=== PATIENT | female | born 2005 | race Caucasian/White ===

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

== ENCOUNTER → 2023-04-15 12:19 | Outpatient (CLI) | payer OTHER, MEDICAID, SELFPAY ==
--- NOTE | 2023-04-15 12:20 | DI.US.S_ITS ---
PROCEDURE: US PELVIC COMPLETE INDICATIONS: CRAMPING TECHNIQUE: Real-time scanning was performed of the pelvic organs, with image documentation. Additional endovaginal scanning was necessary due to incomplete visualization of the adnexal and endometrial structures by transabdominal scanning. COMPARISON: [facility], US, US PELVIC COMPLETE, 01/10/2022, 16:00. FINDINGS: Uterus: Uterus is retroverted and normal in size at 6.6 x 4.4 x 5.4 cm. The myometrium is homogeneous. The endometrium measures 10.7 mm combined thickness. No uterine fibroids. Ovaries: The right ovary measures 2.1 x 3.0 x 1.5 cm, with a calculated ovarian volume of 5.1 cc. The left ovary measures 3.4 x 1.9 x 2.7 cm, with a calculated ovarian volume of 9.4 cc. Left ovarian complex cyst measuring 1.8 x 0.9 x 1.1 cm with peripheral vascularity. Less than 12 follicles can be seen in each ovary. No adnexal masses are seen. Other: No pathologic free abdominal or pelvic fluid. IMPRESSION: Complex cyst within the left ovary with peripheral vascularity measuring 1.8 cm. Consider follow-up ultrasound in 6-12 weeks to assess stability or resolution. We strive to produce accurate, complete, and clear reports of imaging services. To assist us in improving patient care, this report was composed using standard report templates and voice recognition software. Therefore, it may contain abnormal punctuation, insertions and/or omissions. Occasional wrong-word or sound-alike substitutions may occur. Though we review the report and make efforts to correct it, we do recommend that the report be read carefully in proper context to recognize any text inaccuracies. Dictated by: Don Asher M.D. on 04/15/2023 at 14:28 Approved by: Don Asher M.D. on 04/15/2023 at 14:32
== END ==
PROVIDERS: Family Provider Family Medicine; PCP Family Medicine; Referring Provider Family Medicine; Visit Provider Family Medicine
DX: N93.9 Abnormal uterine and vaginal bleeding, unspecified (principal); N83.292 Other ovarian cyst, left side; R10.2 Pelvic and perineal pain; Z11.3 Encounter for screening for infections with a predominantly sexual mode of transmission; Z87.42 Personal history of other diseases of the female genital tract
CPT/HCPCS: 76830; 76856; 93975

== ENCOUNTER 2023-06-04 07:57 | Emergency (ER) | payer OTHER, MEDICAID, SELFPAY ==
[2023-06-04 08:16] VITALS: BP 133/73; PULSE 86; RESP 16; TEMP 36.9; O2SAT 99; BMI 21.9
--- NOTE | 2023-06-04 08:25 | ED.ANXIETY ---
HPI - Anxiety General Chief Complaint: Anxiety Stated Complaint: anxiety attacks, loss apetite,SI symptoms Time Seen by Provider: 06/04/23 08:15 History of Present Illness HPI narrative: Patient is a 18-year-old female with history of bipolar, anxiety presenting today with anxiety. She reports that she was previously on quetiapine for a long time however she sure that she liked the way it made her feel and she was worried that she might get addicted to it. She reports that it did help her sleep at night though but felt like maybe it was too high of a dose. She has not taken it for some time. She reports that she is currently going through a break-up and feels very anxious. She is are time going to sleep at baseline but she will sleep for a couple of hours and then wake up in chair panic with nausea and vomiting. She has no plan of harming herself but she occasionally has thoughts of suicide. She feels like she just needs some medication. She is on wait list for Psychiatry and a PCP but she is yet to be established. Feels like he was safe at home she is lives with her sister her mom and her cat. Related Data Previous Rx's Medication Instructions Recorded quetiapine 50 mg tablet 50 mg PO BEDTIME #30 tabs 02/11/23 hydroxyzine HCl 50 mg tablet 50 mg PO QID PRN anxiety #30 tabs 06/04/23 quetiapine 25 mg tablet 25 mg PO BEDTIME #7 tabs 06/04/23 Allergies Allergy/AdvReac Type Severity Reaction Status Date / Time bacitracin Allergy Mild Blister Verified 06/04/23 07:43 [From Neosporin ([id number])] neomycin Allergy Mild Blister Verified 06/04/23 07:43 [From Neosporin ([id number])] polymyxin B Allergy Mild Blister Verified 06/04/23 07:43 [From Neosporin ([id number])] Patient History Medical History (Updated 06/04/23 @ 08:50 by Renata Apodaca DO) PTSD (post-traumatic stress disorder) History of bipolar disorder Headache Shoulder pain Moderate mood disorder Insomnia Complex posttraumatic stress disorder Anxiety Depression ADHD Surgical History (Updated 02/21/23 @ 19:41 by Vidhi Lizama) Anesthesia Status post labral repair of shoulder History of tonsillectomy Family History (Updated 02/21/23 @ 19:42 by Vidhi Lizama) Father Diabetes mellitus Mental health problem Grandfather Mental health problem Grandmother Mental health problem Social History Smoking Status: Current some day smoker Smoking Status: Current some day smoker tobacco type: vaping alcohol intake frequency: holidays/special occasions only Substance Use Type: marijuana Exam Initial Vital Signs Initial Vital Signs: Vital Signs Temperature 98.5 F 06/04/23 08:16 Pulse Rate 86 06/04/23 08:16 Respiratory Rate 16 06/04/23 08:16 Blood Pressure 133/73 06/04/23 08:16 Pulse Oximetry 99 06/04/23 08:16 Oxygen Delivery Method Room Air 06/04/23 08:16 GENERAL: Alert slightly anxious 18-year-old female CARDIOVASCULAR: peripheral pulses in tact, cap refill <2 sec RESPIRATORY: No respiratory distress, speaks in full sentences without difficulty EXTREMITIES: Normal range of motion, no clubbing or edema. Neurovascularly intact NEUROLOGICAL: Cranial nerves II through XII grossly intact. Normal gait and speech. SKIN: Warm, dry, no petechiae, no rashes or lesions. Psych Appearance: grossly normal Mental Status: mental status grossly normal Speech and Movement: not agitated, speech clear, no echolalia, speech not pressured and not restless Mood: anxious mood, not manic, not paranoid, not labile, No irritable mood and No euthymic mood Affect: anxious affect Attitude: cooperative Thought Process: normal Thought Content: no hallucinations, no phobias and suicidality Judgment: judgment good Course Orders Ordered: Discontinued Medications Hydroxyzine HCl (Hydroxyzine Hcl 25 Mg Tablet) 50 mg PO NOW ONE Stop: 06/04/23 08:34 Last Admin: 06/04/23 08:37 Dose: 50 mg Documented By: CTS Vital Signs Vital signs: Vital Signs - 8 hr 06/04/23 08:16 Temperature 98.5 F Pulse Rate 86 Respiratory Rate 16 Blood Pressure 133/73 Pulse Oximetry 99 Oxygen Delivery Method Room Air MDM - Anxiety MDM Narrative Medical decision making narrative: Patient 18-year-old history of bipolar last seen by Dr. Mcfarland in 2021. She is on a wait list to see a new psychiatrist in September of 2023. Last note reports that she felt quetiapine made her over-sedated and was inconsistent with taking it. Today she does not have a real suicide plans mostly feels very anxious brought on by a recent break up. We discussed about being compliant with quetiapine we can start her at a lower dose. We also called and got her an appointment with Dr. Worthy in 5 days. I feel like it is reasonable to give her hydroxyzine for her anxiety which has previously helped also restart her on quetiapine at a lower dose and PCP can monitor and follow it as needed. At this time she does not meet any sort of involuntary criteria she has very good insight and judgment. Does not appear manic no pressured speech no paranoia. After reading Dr. Taylor note, SSRI or either not effective or caused side effects, prazosin has been tried as well but also caused dizziness and propranolol was not tolerating Discharge Plan Departure Patient Disposition: Home Clinical Impression: Anxiety Instructions: Anxiety Disorders Activity Restrictions/Additional Instructions: *You have been diagnosed with anxiety *What to do: At this time you will need to follow up with Dr. Worthy for further medication prescriptions and evaluated. He will start you back on your quetiapine to see if that helps along with hydroxyzine *Continue to take medications as directed Quetiapine 25 mg at bedtime Hydroxyzine 50 mg every 6 hours as needed for anxiety *Follow up with your primary care provider in 2-3 days or call [phone] Dr. Worthy October 08 at 10:00 a.m. *Return to ER if you should have increased anxiety thoughts of self-harm or any new, worsening or concerning symptoms Prescriptions: New quetiapine 25 mg tablet 25 mg PO BEDTIME Qty: 7 0RF hydroxyzine HCl 50 mg tablet 50 mg PO QID PRN (Reason: anxiety) Qty: 30 0RF No Action quetiapine 50 mg tablet 50 mg PO BEDTIME Qty: 30 5RF Referrals: Marina Worhty DO [Primary Care Provider] - Stand Alone Forms: Patient Portal/API, Work Release Note
--- NOTE | 2023-06-04 08:31 | PC.NURSE ---
Called and made a follow up appt for pt with Dr Larson for 12/09/23 at 10am. Plan in ED to restart Seroquel at a lower dosage and start hydroxyzine for anxiety.
[2023-06-04] MEDS: hydrOXYzine HCL 25 MG TABLET 50 MG PO (08:37)
== END 2023-06-04 08:57 | disposition home or self-care (01) ==
PROVIDERS: Emergency Provider Emergency Medicine; Family Provider Family Medicine; PCP Family Medicine
DX: F41.9 Anxiety disorder, unspecified (principal); R11.2 Nausea with vomiting, unspecified
CPT/HCPCS: 99283; A9270

== ENCOUNTER → 2023-07-29 10:00 | Outpatient (CLI) | payer OTHER, MEDICAID, SELFPAY | PROVIDERS: Family Provider Family Medicine; PCP Family Medicine; Visit Provider Nurse Practitioner Family | DX: R30.0 Dysuria (principal) | CPT/HCPCS: 81002; 87086 ==

== ENCOUNTER 2023-07-30 07:38 | Emergency (ER) | payer OTHER, MEDICAID, SELFPAY ==
[2023-07-30 07:47] VITALS: BP 129/57; PULSE 92; RESP 18; TEMP 36.4; O2SAT 100; BMI 21.1
[2023-07-30 08:17] LABS: Urine Volume 10mL (spun)
[2023-07-30 08:21] LABS: Bacteria Urine None Seen; Culture Indicated Urine Cult Not Indicated; RBC Urine 1-5/HPF (0-5/HPF); Squamous Epithelial Cell Urine 1-5 /HPF (0-5/HPF); WBC Urine None Seen (0-5/HPF)
--- NOTE | 2023-07-30 13:25 | ED_ITS ---
HPI - Female Genitourinary General Chief complaint: Urogenital-Female Stated complaint: Abd Pain, Blood in Urine Source: patient Mode of arrival: Ambulatory History of Present Illness HPI Narrative: Patient left without being seen by a provider Related Data Previous Rx's Medication Instructions Recorded hydroxyzine HCl 50 mg tablet 50 mg PO QID PRN anxiety #360 tabs 07/14/23 quetiapine 50 mg tablet 50 mg PO BEDTIME #30 tabs 07/14/23 Allergies Allergy/AdvReac Type Severity Reaction Status Date / Time bacitracin Allergy Mild Blister Verified 07/30/23 07:52 [From Neosporin ([id number])] neomycin Allergy Mild Blister Verified 07/30/23 07:52 [From Neosporin ([id number])] polymyxin B Allergy Mild Blister Verified 07/30/23 07:52 [From Neosporin ([id number])] Patient History Medical History (Updated 07/30/23 @ 09:46 by Annie Garcia RN) PTSD (post-traumatic stress disorder) History of bipolar disorder Headache Shoulder pain Moderate mood disorder Insomnia Complex posttraumatic stress disorder Anxiety Depression ADHD Surgical History (Updated 02/21/23 @ 19:41 by Vidhi Lizama) Anesthesia Status post labral repair of shoulder History of tonsillectomy Family History (Updated 02/21/23 @ 19:42 by Vidhi Lizama) Father Diabetes mellitus Mental health problem Grandfather Mental health problem Grandmother Mental health problem tobacco type: vaping alcohol intake frequency: holidays/special occasions only Last Alcoholic Drink: does not use Substance Use Type: marijuana Exam Initial Vital Signs Initial Vital Signs: Vital Signs Temperature 97.6 F 07/30/23 07:47 Pulse Rate 92 H 07/30/23 07:47 Respiratory Rate 18 07/30/23 07:47 Blood Pressure 129/57 L 07/30/23 07:47 Pulse Oximetry 100 07/30/23 07:47 Oxygen Delivery Method Room Air 07/30/23 07:47 Course Orders Ordered: Discontinued Medications Ondansetron HCl (Ondansetron 4 Mg Odt) 4 mg SL NOW PRN PRN Reason: Nausea And Vomiting Ondansetron HCl (Ondansetron 4 Mg/2 Ml Inj) 4 mg IV NOW PRN PRN Reason: Nausea And Vomiting Vital Signs Vital signs: Vital Signs - 8 hr 07/30/23 07:47 Temperature 97.6 F Pulse Rate 92 H Respiratory Rate 18 Blood Pressure 129/57 L Pulse Oximetry 100 Oxygen Delivery Method Room Air MDM - Female Genitourinary Lab Data Labs: Lab Results 07/30/23 Range/Units 08:06 Urine RBC 1-5/hpf (0-5/HPF) Urine WBC None seen (0-5/HPF) Ur Squamous Epith Cells 1-5 /hpf (0-5/HPF) Urine Bacteria None seen (None) Ur Culture Indicated? Cult not indicated Vol Urine Centrifuged 10ml (spun) Point of Care Testing Test Results Negative Urine Dip Bedside Urine Glucose Negative Bedside Urine Bilirubin - Negative Bedside Urine Ketone - Negative Urine Specific [place] 1.025 Bedside Urine Occult Blood +/- Bedside Urine pH 6.0 Bedside Urine Protein - Negative Bedside Urine Urobilinogen - Negative Bedside Urine Nitrite - Negative Bedside Urine Leukocytes - Negative Esterase Discharge Plan Departure Patient Disposition: Left Without Being Seen Clinical Impression: Patient left without being seen Prescriptions: No Action hydroxyzine HCl 50 mg tablet 50 mg PO QID PRN (Reason: anxiety) Qty: 360 0RF quetiapine 50 mg tablet 50 mg PO BEDTIME Qty: 30 0RF Rx Instructions: NEEDS TO SEE PCP FOR FURTHER REFILLS. 07/14/23
== END 2023-07-30 09:46 | disposition left against medical advice (07) ==
PROVIDERS: Emergency Provider Emergency Medicine; Family Provider Family Medicine; PCP Family Medicine
DX: R10.9 Unspecified abdominal pain (principal); R31.9 Hematuria, unspecified
CPT/HCPCS: 81003; 81015; 81025; 99282

== ENCOUNTER 2023-08-18 13:45 | Outpatient (RCR) | payer OTHER, MEDICAID, SELFPAY ==
--- NOTE | 2023-08-05 16:46 | PT.OIE ---
Current Diagnoses Pain in right shoulder (08/05/23) Abnormal posture (08/05/23) Weakness (08/05/23) Past Medical History (Last Updated 02/21/23 @ 19:41 by Vidhi Lizama) ADHD Anxiety Complex posttraumatic stress disorder Depression Headache History of bipolar disorder Insomnia Moderate mood disorder PTSD (post-traumatic stress disorder) Shoulder pain Past Surgical History (Last Updated 02/21/23 @ 19:41 by Vidhi Lizama) Anesthesia History of tonsillectomy Status post labral repair of shoulder Visit Care Team Role Provider Type Genesis Holley DO Family Provider Non-Staff Specialty: [facility] Practice Address: Fax: Email: Marina Worthy DO Attending Provider Physician Primary Care Provider Referring Provider Specialty: [facility] Address: [address] [place] [address], [address], [facility] Email: [email or web address] Physical Therapy Initial Evaluation PT-OP-A Visit Information Start: 08/03/23 15:38 Freq: Status: Active Protocol: Document 08/05/23 13:50 [facility] (Rec: 08/05/23 14:34 [facility] [id number]) Out-Patient Physical Therapy Visit Information Visit Information Visit Type Initial Evaluation Visit Start Time 13:51 Visit Stop Time 14:31 Visit Number 1 Number of MEAT SUPERVISOR Visits 0 PT-OP-B Current Condition Start: 08/03/23 15:38 Freq: Status: Active Protocol: Document 08/05/23 13:50 [facility] (Rec: 08/05/23 14:34 [facility] [id number]) Current Condition History of Current Condition Current Complaints R shoulder History of Current Condition Pt had labral repair surgery in June 2 years ago. She slept on it funny a few weeks ago and it pops and feels unstable . She fell on her R side, hitting back and R shoulder about 1.5 month ago. this was the start when it acting up. She tripped while running. The shoulder was holding up okay up unitl then where it was stiff. She does still get sharp pains down to elbow and now to hand. Starts R neck, R inf shoulder blade then down to post arm, lat arm to hand all shooting pain, but fingers do feel tingly. Pt reports neck feels stiff. Pt works at [employer] now and can lift things, but shoulder feels unstable and gets sore after. Pt is worried about it dislocating. Has to avoid lifting really heavy things like 80lb bags of concrete. Treatment Goals Patient/Caregiver Goals Shoulder to not feel unstable. PT-OP-C Subjective Start: 08/03/23 15:38 Freq: Status: Active Protocol: Document 08/05/23 13:50 [facility] (Rec: 08/05/23 15:40 [id number] Patient Questionnaires Quick Dash- Upper Extremity Quick Dash UE Score 56.8 PT-OP-F Manual Assessment Start: 08/03/23 15:38 Freq: Status: Active Protocol: Document 08/05/23 13:50 [facility] (Rec: 08/05/23 14:34 [place] [id number]) Manual Assessments Joint Mobility Assessment Joint Mobility Assessment humerus very ant in glenoid PT-OP-J Posture/Palpation/Skin Start: 08/03/23 15:38 Freq: Status: Active Protocol: Document 08/05/23 13:50 [facility] (Rec: 08/05/23 14:34 [id number] Posture Evaluation [facility] Postural Classification System Alber Postural Classifications Posterior/Anterior Elbow Flexion Test 0 Comments Posture Comments R>L scap abd, ant tip, R shoulder higher, inc kyphosis and fwd head PT-OP-K Range of Motion Start: 08/03/23 15:38 Freq: Status: Active Protocol: Document 08/05/23 13:50 [facility] (Rec: 08/05/23 14:34 [id number] Cervical Spine Range of Motion Cervical Spine Active Degrees Flexion 70 Extension 51 Rotation Left 66 Rotation Right 80 Lateral Flexion Left 42 Lateral Flexion Right 51 Comments tspine rot B: 100% but pain back Shoulder Goniometric Range of Motion Shoulder Right Active Flexion 157 Extension 69 Abduction 180 External Rotation at 0 degrees Abduction 40 Internal Rotation Behind Back (text) T6 Comments pain w/IR, abd (fingers tingle also), flex Left Active Flexion 171 Abduction 180 External Rotation at 0 degrees Abduction 53 Internal Rotation Behind Back (text) T2 PT-OP-L Special Tests Start: 08/03/23 15:38 Freq: Status: Active Protocol: Document 08/05/23 13:50 [facility] (Rec: 08/05/23 14:34 [facility] [id number]) Special Tests Cervical Spine Special Tests Spurling's Test Test Results neg for compression and traction Shoulder Special Tests Sulcus Test Results neg Comments some laxity but equal to other side Speed's Biceps Test Results neg [place] Test Test Results positive-more pain than speeds Neer Impingement Test Results neg Manuel Fabrice Impingement Test Results neg Empty Can Test Results positive for pain AC Joint Compression Test Results neg Neural Special Tests- Upper Body Median Nerve Tension Test Results pos R Radial Nerve Tension Test Results pos R Ulnar Nerve Tension Test Results pos R PT-OP-M Strength Start: 08/03/23 15:38 Freq: Status: Active Protocol: Document 08/05/23 13:50 [facility] (Rec: 08/05/23 14:34 [facility] [id number]) Shoulder Strength Shoulder Manual Muscle Testing Right Flexion 4- Good- Extension 4- Good- Abduction (C5) 4- Good- External Rotation 3+ Fair+ Internal Rotation 4- Good- Left Flexion 5 Normal Extension 5 Normal Abduction (C5) 5 Normal External Rotation 5 Normal Internal Rotation 5 Normal Elbow/Forearm Strength Elbow and Forearm Manual Muscle Testing Right Flexion (C6) 5 Normal Extension (C7) 5 Normal Pronation 5 Normal Supination 5 Normal Left Flexion (C6) 5 Normal Extension (C7) 5 Normal Pronation 5 Normal Supination 5 Normal PT-OP-Q Treatments Start: 08/03/23 15:38 Freq: Status: Active Protocol: Document 08/05/23 13:50 [facility] (Rec: 08/05/23 14:34 [facility] [id number]) Therapeutic Exercises Standing Exercises IR Side right Equipment Used L1 Reps/Minutes 15 ER Standing Exercise Name both arms Side bilateral Equipment Used L1 Reps/Minutes 15 row Side bilateral Equipment Used L2 Reps/Minutes 15 self release Standing Exercise Name tennis ball Side right wall posture Standing Exercise Name B UE ext Side bilateral Reps/Minutes 1 min PT-OP-T Assessment and Plan Start: 08/03/23 15:38 Freq: Status: Active Protocol: Document 08/05/23 13:50 [facility] (Rec: 08/05/23 14:34 [facility] [id number]) Physical Therapy Assessment Goals pain Short Term Goal (STG) Pt will be able to don/doff sweatshirts and other tighter shifts w/o inc pain STG Duration 09/20 [facility] Goal (LTG) Pt will report being able to do work activities w/o shoulder feeling unstable or painful greater than 2/10 LTG Duration 10/27 strength Short Term Goal (STG) Pt will be indep w/HEP STG Duration 09/20 [facility] Goal (LTG) pt will score at least 4+/5 on all R UE MMT and 4/5 on EFT to show improved stability to allow her to do lifting/ carrying neede for work LTG Duration 10/27 quick dash Impairment 56.8 Short Term Goal (STG) Pt will improve quick dash score to no higher than 40 to show improved functional ability. STG Duration 09/20 [facility] Goal (LTG) Pt will improve quick dash score to no higher than 10 to show improved functional ability. LTG Duration 10/27 Assessment Summary Assessment Pt presents w/R shoulder pain w/long history and mult complications. She had R labral surgery about 2 years ago and has done PT twice since and recently had inc in pain after fall about 1.5 months ago and then a few weeks ago sleeping on it funny , inc pain. She works where she has to lift ([employer]) and has inc shoulder pain w/ this. She has signfiicant fwd shoulders and was edcuated on how this can incpressure on labrum and shoulder jt in general and was very receptive . She also has signficant weakness along w/mechanical restrictions of ribs and Tspine. pt would benefit from skilled PT to work on improved strength, ROM, functional ability and to dec pain . Physical Therapy Plan Frequency and Duration Frequency of Treatment 2x/Week Duration of treatment (weeks) 12 Plan of Care Start Date 08/05/23 Plan of Care End Date 10/28/23 Therapeutic Interventions Therapeutic Interventions Home Exercise Program,Joint Mobilizations,Lymphedema Management,Neuromuscular Re- education,Patient/Caregiver Education,Self-Care/Home Management,Soft Tissue Mobilization,Taping, Therapeutic Activities, Therapeutic Exercises Modalities Cold Pack/Ice Massage,Electric Stimulation,Hot Packs, Infrared Therapy,Ultrasound Next Visit Focus/Plan Next Note Type Treatment Note Next Visit Plan review HEP; Tspine ext exercises, I,T, Y manual: Tspine mobs, rib mobs, AC, SC mobs, pec STM
--- NOTE | 2023-08-05 16:46 | PT.OPPOC ---
Physical, Occupational & Speech Therapy At [facility] Current Diagnoses Pain in right shoulder (08/05/23) Abnormal posture (08/05/23) Weakness (08/05/23) Visit Care Team Role Provider Type Genesis Holley DO Family Provider Non-Staff Specialty: [facility] Practice Address: Fax: Email: Marina Worthy DO Attending Provider Physician Primary Care Provider Referring Provider Specialty: [facility] Address: [address] [place] [address], [address], [facility] Email: [email or web address] Plan Of Care PT-OP-T Assessment and Plan Start: 08/03/23 15:38 Freq: Status: Active Protocol: Document 08/05/23 13:50 [facility] (Rec: 08/05/23 14:34 [facility] [id number]) Physical Therapy Assessment Goals pain Short Term Goal (STG) Pt will be able to don/doff sweatshirts and other tighter shifts w/o inc pain STG Duration 09/20 Kitchen Stewardess Goal (LTG) Pt will report being able to do work activities w/o shoulder feeling unstable or painful greater than 2/10 LTG Duration 9 strength Short Term Goal (STG) Pt will be indep w/HEP STG Duration 09/20 Residential Goal (LTG) pt will score at least 4+/5 on all R UE MMT and 4/5 on EFT to show improved stability to allow her to do lifting/ carrying neede for work LTG Duration 10/27 quick dash Impairment 56.8 Short Term Goal (STG) Pt will improve quick dash score to no higher than 40 to show improved functional ability. STG Duration 09/20 Kitchen Stewardess Goal (LTG) Pt will improve quick dash score to no higher than 10 to show improved functional ability. LTG Duration 10/27 Assessment Summary Assessment Pt presents w/R shoulder pain w/long history and mult complications. She had R labral surgery about 2 years ago and has done PT twice since and recently had inc in pain after fall about 1.5 months ago and then a few weeks ago sleeping on it funny , inc pain. She works where she has to lift ([employer]) and has inc shoulder pain w/ this. She has signfiicant fwd shoulders and was edcuated on how this can incpressure on labrum and shoulder jt in general and was very receptive . She also has signficant weakness along w/mechanical restrictions of ribs and Tspine. pt would benefit from skilled PT to work on improved strength, ROM, functional ability and to dec pain . Physical Therapy Plan Frequency and Duration Frequency of Treatment 2x/Week Duration of treatment (weeks) 12 Plan of Care Start Date 08/05/23 Plan of Care End Date 10/28/23 Therapeutic Interventions Therapeutic Interventions Home Exercise Program,Joint Mobilizations,Lymphedema Management,Neuromuscular Re- education,Patient/Caregiver Education,Self-Care/Home Management,Soft Tissue Mobilization,Taping, Therapeutic Activities, Therapeutic Exercises Modalities Cold Pack/Ice Massage,Electric Stimulation,Hot Packs, Infrared Therapy,Ultrasound Next Visit Focus/Plan Next Note Type Treatment Note Next Visit Plan review HEP; Tspine ext exercises, I,T, Y manual: Tspine mobs, rib mobs, AC, SC mobs, pec STM Plan of Care Dates Plan of Care Start Date 08/05/23 Plan of Care End Date 10/28/23 Electronically Signed by: Ankita Euceda, PT 08/05/23 2540 If you are in agreement with this Plan of Care, please return a signed and dated copy. I have reviewed this Plan of Care and certify that the skilled therapy services above are required to meet the patient?s needs. Physician Signature Date Printed Name and Credentials Clinical Instructor Signature Printed Name and Credentials
--- NOTE | 2023-08-09 14:33 | PT.OTN ---
Current Diagnoses Pain in right shoulder (08/09/23) Abnormal posture (08/09/23) Weakness (08/09/23) Physical Therapy Treatment Note PT-OP-A Visit Information Start: 08/03/23 15:38 Freq: Status: Active Protocol: Document 08/09/23 13:51 [facility] (Rec: 08/09/23 14:33 [facility] [id number]) Out-Patient Physical Therapy Visit Information Visit Information Visit Type Treatment Note Visit Start Time 13:50 Visit Stop Time 14:30 Visit Number 2 Number of JUVENILE DETENTION OFFICER Visits 0 PT-OP-B Current Condition Start: 08/03/23 15:38 Freq: Status: Active Protocol: Document 08/05/23 13:50 [facility] (Rec: 08/05/23 14:34 [facility] [id number]) Current Condition History of Current Condition Current Complaints R shoulder History of Current Condition Pt had labral repair surgery in June 2 years ago. She slept on it funny a few weeks ago and it pops and feels unstable . She fell on her R side, hitting back and R shoulder about 1.5 month ago. this was the start when it acting up. She tripped while running. The shoulder was holding up okay up unitl then where it was stiff. She does still get sharp pains down to elbow and now to hand. Starts R neck, R inf shoulder blade then down to post arm, lat arm to hand all shooting pain, but fingers do feel tingly. Pt reports neck feels stiff. Pt works at [employer] now and can lift things, but shoulder feels unstable and gets sore after. Pt is worried about it dislocating. Has to avoid lifting really heavy things like 80lb bags of concrete. Treatment Goals Patient/Caregiver Goals Shoulder to not feel unstable. PT-OP-C Subjective Start: 08/03/23 15:38 Freq: Status: Active Protocol: Document 08/09/23 13:51 [facility] (Rec: 08/09/23 14:33 [facility] [id number]) OP-PT Subjective Patient Comments Patient Comments Pt reports wacking R shoulder on doorframe at work yesterday and made ant shoulder sore. PT-OP-F Manual Assessment Start: 08/03/23 15:38 Freq: Status: Active Protocol: Document 08/05/23 13:50 [facility] (Rec: 08/05/23 14:34 [facility] [id number]) Manual Assessments Joint Mobility Assessment Joint Mobility Assessment humerus very ant in glenoid PT-OP-J Posture/Palpation/Skin Start: 08/03/23 15:38 Freq: Status: Active Protocol: Document 08/05/23 13:50 [facility] (Rec: 08/05/23 14:34 [facility] [id number]) Posture Evaluation [facility] Postural Classification System Alber Postural Classifications Posterior/Anterior Elbow Flexion Test 0 Comments Posture Comments R>L scap abd, ant tip, R shoulder higher, inc kyphosis and fwd head PT-OP-K Range of Motion Start: 08/03/23 15:38 Freq: Status: Active Protocol: Document 08/05/23 13:50 [facility] (Rec: 08/05/23 14:34 [facility] [id number]) Cervical Spine Range of Motion Cervical Spine Active Degrees Flexion 70 Extension 51 Rotation Left 66 Rotation Right 80 Lateral Flexion Left 42 Lateral Flexion Right 51 Comments tspine rot B: 100% but pain back Shoulder Goniometric Range of Motion Shoulder Right Active Flexion 157 Extension 69 Abduction 180 External Rotation at 0 degrees Abduction 40 Internal Rotation Behind Back (text) T6 Comments pain w/IR, abd (fingers tingle also), flex Left Active Flexion 171 Abduction 180 External Rotation at 0 degrees Abduction 53 Internal Rotation Behind Back (text) T2 PT-OP-L Special Tests Start: 08/03/23 15:38 Freq: Status: Active Protocol: Document 08/05/23 13:50 [facility] (Rec: 08/05/23 14:34 [facility] [id number]) Special Tests Cervical Spine Special Tests Spurling's Test Test Results neg for compression and traction Shoulder Special Tests Sulcus Test Results neg Comments some laxity but equal to other side Speed's Biceps Test Results neg [place] Test Test Results positive-more pain than speeds Neer Impingement Test Results neg Manuel Fabrice Impingement Test Results neg Empty Can Test Results positive for pain AC Joint Compression Test Results neg Neural Special Tests- Upper Body Median Nerve Tension Test Results pos R Radial Nerve Tension Test Results pos R Ulnar Nerve Tension Test Results pos R PT-OP-M Strength Start: 08/03/23 15:38 Freq: Status: Active Protocol: Document 08/05/23 13:50 [facility] (Rec: 08/05/23 14:34 [facility] [id number]) Shoulder Strength Shoulder Manual Muscle Testing Right Flexion 4- Good- Extension 4- Good- Abduction (C5) 4- Good- External Rotation 3+ Fair+ Internal Rotation 4- Good- Left Flexion 5 Normal Extension 5 Normal Abduction (C5) 5 Normal External Rotation 5 Normal Internal Rotation 5 Normal Elbow/Forearm Strength Elbow and Forearm Manual Muscle Testing Right Flexion (C6) 5 Normal Extension (C7) 5 Normal Pronation 5 Normal Supination 5 Normal Left Flexion (C6) 5 Normal Extension (C7) 5 Normal Pronation 5 Normal Supination 5 Normal PT-OP-Q Treatments Start: 08/03/23 15:38 Freq: Status: Active Protocol: Document 08/09/23 13:51 [facility] (Rec: 08/09/23 14:33 [facility] [id number]) Therapeutic Exercises Prone Exercises ext Side bilateral Resistance 1# Equipment Used tball Reps/Minutes 15 scaption Side bilateral Equipment Used tball Reps/Minutes 15 Habd Prone Exercise Name palm down Side bilateral Equipment Used over tball Reps/Minutes 1x8; 1x12 w/1# Standing Exercises IR Side right Equipment Used L1 Reps/Minutes 15 ER Standing Exercise Name both arms Side bilateral Equipment Used L1 Reps/Minutes 15 row Side bilateral Equipment Used L2 Reps/Minutes 15 wall posture Standing Exercise Name B UE ext Side bilateral Reps/Minutes 1 min Manual Therapy Treatment Soft Tissue Mobilization superior Body Location R UT, LS, scalenes Mobilization Type Rolling,Sustained Pressure Intensity/Depth Moderate Body Position Supine Comments w/cervical rot post Body Location R lat Mobilization Type Sustained Pressure Intensity/Depth Moderate Body Position Sidelying pec Body Location R major/minor Mobilization Type Sustained Pressure Intensity/Depth Moderate Joint Mobilizations ribs Joint caudal 2nd rib; external torsion R 5th rib thoracic Comments PA seated FM T7, T9; T1-3; T5 GH Comments R post FM PT-OP-R Modalities Start: 08/03/23 15:38 Freq: Status: Active Protocol: Document 08/09/23 13:51 [facility] (Rec: 08/09/23 14:33 [facility] [id number]) Hot Pack/Cold Pack Treatment CP Location R shld Patient Position Supine PT-OP-T Assessment and Plan Start: 08/03/23 15:38 Freq: Status: Active Protocol: Document 08/09/23 13:51 [facility] (Rec: 08/09/23 14:33 [facility] [id number]) Physical Therapy Assessment Goals pain Short Term Goal (STG) Pt will be able to don/doff sweatshirts and other tighter shifts w/o inc pain STG Duration 09/20 Printed Circuit Boards Solder Leveler Goal (LTG) Pt will report being able to do work activities w/o shoulder feeling unstable or painful greater than 2/10 LTG Duration 10/27 strength Short Term Goal (STG) Pt will be indep w/HEP STG Duration 09/20 [facility] Goal (LTG) pt will score at least 4+/5 on all R UE MMT and 4/5 on EFT to show improved stability to allow her to do lifting/ carrying neede for work LTG Duration 10/27 quick dash Impairment 56.8 Short Term Goal (STG) Pt will improve quick dash score to no higher than 40 to show improved functional ability. STG Duration 09/20 [facility] Goal (LTG) Pt will improve quick dash score to no higher than 10 to show improved functional ability. LTG Duration 10/27 Assessment Summary Assessment Improved performance w/tband exercises but cues needed still to avoid scap elevation. Cues needed w/prone exercises to avoid scap elevation. Pt had improved scap position w/ dec winging after manual. Physical Therapy Plan Frequency and Duration Frequency of Treatment 2x/Week Duration of treatment (weeks) 12 Plan of Care Start Date 08/05/23 Plan of Care End Date 10/28/23 Next Visit Focus/Plan Next Note Type Treatment Note Next Visit Plan review HEP; Tspine ext exercises, I, T, Y manual: Tspine mobs, rib mobs, AC, SC mobs, pec STM
--- NOTE | 2023-08-16 16:16 | PT.OTN ---
Current Diagnoses Pain in right shoulder (08/16/23) Abnormal posture (08/16/23) Weakness (08/16/23) Physical Therapy Treatment Note PT-OP-A Visit Information Start: 08/03/23 15:38 Freq: Status: Active Protocol: Document 08/16/23 13:47 AB (Rec: 08/16/23 14:30 AB [id number]) Out-Patient Physical Therapy Visit Information Visit Information Visit Type Treatment Note Visit Start Time 13:48 Visit Stop Time 14:29 Visit Number 3 Number of TOILET ATTENDANT Visits 1 PT-OP-B Current Condition Start: 08/03/23 15:38 Freq: Status: Active Protocol: Document 08/05/23 13:50 [facility] (Rec: 08/05/23 14:34 [facility] [id number]) Current Condition History of Current Condition Current Complaints R shoulder History of Current Condition Pt had labral repair surgery in June 2 years ago. She slept on it funny a few weeks ago and it pops and feels unstable . She fell on her R side, hitting back and R shoulder about 1.5 month ago. this was the start when it acting up. She tripped while running. The shoulder was holding up okay up unitl then where it was stiff. She does still get sharp pains down to elbow and now to hand. Starts R neck, R inf shoulder blade then down to post arm, lat arm to hand all shooting pain, but fingers do feel tingly. Pt reports neck feels stiff. Pt works at [employer] now and can lift things, but shoulder feels unstable and gets sore after. Pt is worried about it dislocating. Has to avoid lifting really heavy things like 80lb bags of concrete. Treatment Goals Patient/Caregiver Goals Shoulder to not feel unstable. PT-OP-C Subjective Start: 08/03/23 15:38 Freq: Status: Active Protocol: Document 08/16/23 13:47 AB (Rec: 08/16/23 14:30 AB [id number]) OP-PT Subjective Patient Comments Patient Comments Patient reports the shoulder is doing alright. Patient reports her back hurts more, but shoulder doesn't pop as much when she moves it. Patient rates thoracic pain 5/ 10 start of session. 146 deg right shoulder flexion. PT-OP-F Manual Assessment Start: 08/03/23 15:38 Freq: Status: Active Protocol: Document 08/05/23 13:50 [facility] (Rec: 08/05/23 14:34 [facility] [id number]) Manual Assessments Joint Mobility Assessment Joint Mobility Assessment humerus very ant in glenoid PT-OP-J Posture/Palpation/Skin Start: 08/03/23 15:38 Freq: Status: Active Protocol: Document 08/05/23 13:50 [facility] (Rec: 08/05/23 14:34 [facility] [id number]) Posture Evaluation [facility] Postural Classification System [facility] Postural Classifications Posterior/Anterior Elbow Flexion Test 0 Comments Posture Comments R>L scap abd, ant tip, R shoulder higher, inc kyphosis and fwd head PT-OP-K Range of Motion Start: 08/03/23 15:38 Freq: Status: Active Protocol: Document 08/05/23 13:50 [facility] (Rec: 08/05/23 14:34 [facility] [id number]) Cervical Spine Range of Motion Cervical Spine Active Degrees Flexion 70 Extension 51 Rotation Left 66 Rotation Right 80 Lateral Flexion Left 42 Lateral Flexion Right 51 Comments tspine rot B: 100% but pain back Shoulder Goniometric Range of Motion Shoulder Right Active Flexion 157 Extension 69 Abduction 180 External Rotation at 0 degrees Abduction 40 Internal Rotation Behind Back (text) T6 Comments pain w/IR, abd (fingers tingle also), flex Left Active Flexion 171 Abduction 180 External Rotation at 0 degrees Abduction 53 Internal Rotation Behind Back (text) T2 PT-OP-L Special Tests Start: 08/03/23 15:38 Freq: Status: Active Protocol: Document 08/05/23 13:50 [facility] (Rec: 08/05/23 14:34 [facility] [id number]) Special Tests Cervical Spine Special Tests Spurling's Test Test Results neg for compression and traction Shoulder Special Tests Sulcus Test Results neg Comments some laxity but equal to other side Speed's Biceps Test Results neg [place] Test Test Results positive-more pain than speeds Neer Impingement Test Results neg Manuel Fabrice Impingement Test Results neg Empty Can Test Results positive for pain AC Joint Compression Test Results neg Neural Special Tests- Upper Body Median Nerve Tension Test Results pos R Radial Nerve Tension Test Results pos R Ulnar Nerve Tension Test Results pos R PT-OP-M Strength Start: 08/03/23 15:38 Freq: Status: Active Protocol: Document 08/05/23 13:50 [facility] (Rec: 08/05/23 14:34 [facility] [id number]) Shoulder Strength Shoulder Manual Muscle Testing Right Flexion 4- Good- Extension 4- Good- Abduction (C5) 4- Good- External Rotation 3+ Fair+ Internal Rotation 4- Good- Left Flexion 5 Normal Extension 5 Normal Abduction (C5) 5 Normal External Rotation 5 Normal Internal Rotation 5 Normal Elbow/Forearm Strength Elbow and Forearm Manual Muscle Testing Right Flexion (C6) 5 Normal Extension (C7) 5 Normal Pronation 5 Normal Supination 5 Normal Left Flexion (C6) 5 Normal Extension (C7) 5 Normal Pronation 5 Normal Supination 5 Normal PT-OP-Q Treatments Start: 08/03/23 15:38 Freq: Status: Active Protocol: Document 08/16/23 13:47 AB (Rec: 08/16/23 14:30 AB [id number]) Therapeutic Exercises Supine Exercises alternating UE flexion Side bilateral Reps/Minutes X10 Comments verbal cues pec stretch Supine Exercise Name on 02/23 foam roller Side bilateral Reps/Minutes 2 min Comments verbal cues for breathing from diaphragm Prone Exercises ext Side bilateral Resistance 1# Equipment Used tball Reps/Minutes 15 scaption Side bilateral Equipment Used tball Reps/Minutes 15 Habd Prone Exercise Name palm down Side bilateral Equipment Used over tball Reps/Minutes 1x8; 1x12 w/1# Sidelying Exercises open book Side bilateral Reps/Minutes 5X 5 breaths Standing Exercises lat stretch Reps/Minutes X1 Comments not roseanne IR Side right Equipment Used L1 Reps/Minutes 15 Comments monitored for pain ER Standing Exercise Name both arms Side right Equipment Used L1 Reps/Minutes 15 Comments monitored for pain wall posture Standing Exercise Name B UE ext Side bilateral Reps/Minutes 1 min Manual Therapy Treatment Soft Tissue Mobilization thoracic paraspinals Body Location bilaterally Mobilization Type Sustained Pressure Intensity/Depth Moderate Body Position Sitting Comments and sidelying superior Body Location R UT, LS, scalenes Mobilization Type Cross-Friction,Rolling, Sustained Pressure Intensity/Depth Moderate Body Position Sitting post Body Location R lat/ post cuff Mobilization Type Cross-Friction,Rolling, Sustained Pressure Intensity/Depth Moderate Body Position Sidelying Joint Mobilizations AC SC Joint right Direction inf Grade II Reps/Duration 10 scapular mobilization Joint right Direction into depression and adduction Grade IV Reps/Duration X10 PT-OP-R Modalities Start: 08/03/23 15:38 Freq: Status: Active Protocol: Document 08/09/23 13:51 [facility] (Rec: 08/09/23 14:33 [facility] [id number]) Hot Pack/Cold Pack Treatment CP Location R shld Patient Position Supine PT-OP-T Assessment and Plan Start: 08/03/23 15:38 Freq: Status: Active Protocol: Document 08/16/23 13:47 AB (Rec: 08/16/23 14:30 AB [id number]) Physical Therapy Assessment Assessment Summary Assessment 166 deg AROM right shoulder flexion end of session, reports pain right thoracic area is bettern end of session . Physical Therapy Plan Frequency and Duration Frequency of Treatment 2x/Week Duration of treatment (weeks) 12 Plan of Care Start Date 08/05/23 Plan of Care End Date 10/28/23 Next Visit Focus/Plan Next Note Type Treatment Note Next Visit Plan Tspine ext exercises, I, T, Y to HEP? manual: Tspine mobs, rib mobs, AC, SC mobs, pec STM, Assess roseanne to lat stretch/add to HEP
--- NOTE | 2023-08-18 15:15 | PT.OTN ---
Current Diagnoses Pain in right shoulder (08/18/23) Abnormal posture (08/18/23) Weakness (08/18/23) Physical Therapy Treatment Note PT-OP-A Visit Information Start: 08/03/23 15:38 Freq: Status: Active Protocol: Document 08/18/23 14:13 [facility] (Rec: 08/18/23 15:15 [facility] [id number]) Out-Patient Physical Therapy Visit Information Visit Information Visit Type Treatment Note Visit Start Time 13:50 Visit Stop Time 14:30 Visit Number 4 Number of COAT REPAIR INSPECTOR Visits 0 PT-OP-B Current Condition Start: 08/03/23 15:38 Freq: Status: Active Protocol: Document 08/05/23 13:50 [facility] (Rec: 08/05/23 14:34 [facility] [id number]) Current Condition History of Current Condition Current Complaints R shoulder History of Current Condition Pt had labral repair surgery in June 2 years ago. She slept on it funny a few weeks ago and it pops and feels unstable . She fell on her R side, hitting back and R shoulder about 1.5 month ago. this was the start when it acting up. She tripped while running. The shoulder was holding up okay up unitl then where it was stiff. She does still get sharp pains down to elbow and now to hand. Starts R neck, R inf shoulder blade then down to post arm, lat arm to hand all shooting pain, but fingers do feel tingly. Pt reports neck feels stiff. Pt works at [employer] now and can lift things, but shoulder feels unstable and gets sore after. Pt is worried about it dislocating. Has to avoid lifting really heavy things like 80lb bags of concrete. Treatment Goals Patient/Caregiver Goals Shoulder to not feel unstable. PT-OP-C Subjective Start: 08/03/23 15:38 Freq: Status: Active Protocol: Document 08/18/23 14:13 [facility] (Rec: 08/18/23 15:15 [facility] [id number]) OP-PT Subjective Patient Comments Patient Comments pt reprots scap region is hurting today. Wants to pop it but can't. She has been sleeping in her car the past 3 days and wonders if this is why. PT-OP-F Manual Assessment Start: 08/03/23 15:38 Freq: Status: Active Protocol: Document 08/05/23 13:50 [facility] (Rec: 08/05/23 14:34 [facility] [id number]) Manual Assessments Joint Mobility Assessment Joint Mobility Assessment humerus very ant in glenoid PT-OP-J Posture/Palpation/Skin Start: 08/03/23 15:38 Freq: Status: Active Protocol: Document 08/05/23 13:50 [facility] (Rec: 08/05/23 14:34 [facility] [id number]) Posture Evaluation [facility] Postural Classification System [facility] Postural Classifications Posterior/Anterior Elbow Flexion Test 0 Comments Posture Comments R>L scap abd, ant tip, R shoulder higher, inc kyphosis and fwd head PT-OP-K Range of Motion Start: 08/03/23 15:38 Freq: Status: Active Protocol: Document 08/05/23 13:50 [facility] (Rec: 08/05/23 14:34 [facility] [id number]) Cervical Spine Range of Motion Cervical Spine Active Degrees Flexion 70 Extension 51 Rotation Left 66 Rotation Right 80 Lateral Flexion Left 42 Lateral Flexion Right 51 Comments tspine rot B: 100% but pain back Shoulder Goniometric Range of Motion Shoulder Right Active Flexion 157 Extension 69 Abduction 180 External Rotation at 0 degrees Abduction 40 Internal Rotation Behind Back (text) T6 Comments pain w/IR, abd (fingers tingle also), flex Left Active Flexion 171 Abduction 180 External Rotation at 0 degrees Abduction 53 Internal Rotation Behind Back (text) T2 PT-OP-L Special Tests Start: 08/03/23 15:38 Freq: Status: Active Protocol: Document 08/05/23 13:50 [facility] (Rec: 08/05/23 14:34 [facility] [id number]) Special Tests Cervical Spine Special Tests Spurling's Test Test Results neg for compression and traction Shoulder Special Tests Sulcus Test Results neg Comments some laxity but equal to other side Speed's Biceps Test Results neg [place] Test Test Results positive-more pain than speeds Neer Impingement Test Results neg Manuel Fabrice Impingement Test Results neg Empty Can Test Results positive for pain AC Joint Compression Test Results neg Neural Special Tests- Upper Body Median Nerve Tension Test Results pos R Radial Nerve Tension Test Results pos R Ulnar Nerve Tension Test Results pos R PT-OP-M Strength Start: 08/03/23 15:38 Freq: Status: Active Protocol: Document 08/05/23 13:50 [facility] (Rec: 08/05/23 14:34 [facility] [id number]) Shoulder Strength Shoulder Manual Muscle Testing Right Flexion 4- Good- Extension 4- Good- Abduction (C5) 4- Good- External Rotation 3+ Fair+ Internal Rotation 4- Good- Left Flexion 5 Normal Extension 5 Normal Abduction (C5) 5 Normal External Rotation 5 Normal Internal Rotation 5 Normal Elbow/Forearm Strength Elbow and Forearm Manual Muscle Testing Right Flexion (C6) 5 Normal Extension (C7) 5 Normal Pronation 5 Normal Supination 5 Normal Left Flexion (C6) 5 Normal Extension (C7) 5 Normal Pronation 5 Normal Supination 5 Normal PT-OP-Q Treatments Start: 08/03/23 15:38 Freq: Status: Active Protocol: Document 08/18/23 14:13 [facility] (Rec: 08/18/23 15:15 [facility] [id number]) Therapeutic Exercises Supine Exercises ER Supine Exercise Name ER/IR Side right Reps/Minutes 8 Comments slow controlled motion Prone Exercises ER Prone Exercise Name 90/90 Side bilateral Equipment Used over ball Reps/Minutes 8 ext Side bilateral Resistance 3# Equipment Used tball Reps/Minutes 12 scaption Side bilateral Resistance 1# Equipment Used tball Reps/Minutes 15 Habd Prone Exercise Name palm down Side bilateral Resistance 2#, 3# Equipment Used over tball Reps/Minutes 8 ea wt Sitting Exercises ER Side right Equipment Used 1# Reps/Minutes 15 Manual Therapy Treatment Consent Patient gave verbal consent for manual Yes treatment Soft Tissue Mobilization superior Body Location R UT, LS, scalenes Mobilization Type Cross-Friction,Rolling, Sustained Pressure Intensity/Depth Moderate Body Position Sidelying Comments w/scap dep pec Body Location R major/minor Mobilization Type Sustained Pressure Intensity/Depth Moderate Comments w/rot Joint Mobilizations AC SC Comments AC clavicle AP and PA FMw/ shrugs ribs Comments R rib 6 internal torsion FM thoracic Comments seated PA T5 &6 GH Comments R post PT-OP-R Modalities Start: 08/03/23 15:38 Freq: Status: Active Protocol: Document 08/09/23 13:51 [facility] (Rec: 08/09/23 14:33 [facility] [id number]) Hot Pack/Cold Pack Treatment CP Location R shld Patient Position Supine PT-OP-T Assessment and Plan Start: 08/03/23 15:38 Freq: Status: Active Protocol: Document 08/18/23 14:13 [facility] (Rec: 08/18/23 15:15 [facility] [id number]) Physical Therapy Assessment Goals pain Short Term Goal (STG) Pt will be able to don/doff sweatshirts and other tighter shifts w/o inc pain STG Duration 09/20 [employer] Professor Goal (LTG) Pt will report being able to do work activities w/o shoulder feeling unstable or painful greater than 2/10 LTG Duration 10/27 strength Short Term Goal (STG) Pt will be indep w/HEP STG Duration 09/20 [employer] Professor Goal (LTG) pt will score at least 4+/5 on all R UE MMT and 4/5 on EFT to show improved stability to allow her to do lifting/ carrying neede for work LTG Duration 10/27 quick dash Impairment 56.8 Short Term Goal (STG) Pt will improve quick dash score to no higher than 40 to show improved functional ability. STG Duration 09/20 Group Home Goal (LTG) Pt will improve quick dash score to no higher than 10 to show improved functional ability. LTG Duration 10/27 Assessment Summary Assessment Pt shows much imrpoved shoulder ROM today. Stiffness in tspine much improved after manual treatment. She tolerated inc resistance w/ prone exercises and started work w/90/90 ER. Physical Therapy Plan Next Visit Focus/Plan Next Note Type Treatment Note Next Visit Plan review HEP; Tspine ext exercises, I, T, Y- consider for HEP if pt has a place to do them manual: Tspine mobs, rib mobs, AC, SC mobs, pec STM
--- NOTE | 2023-08-24 07:49 | PT-OP ANOTE ---
Pt did not show for today's appt, RICE CLEANING MACHINE TENDER called left message regarding. Suggested call back and can reschedule but be sure getting support progress with shld. Reminded of policies of [facility] and cancels > 24 hrs prior to appt.
--- NOTE | 2023-08-24 07:55 | PT-OP ANOTE ---
Schedulers just checked voicemail and text at 3 am today cancelling appt, <24 hrs. No reason given. GOLDBEATER left message requesting wanting to support progress, try to give >24 hrs if possible, suggested call back to reschedule appt to support progress. Reminded next appt 08/31.
--- NOTE | 2023-09-01 07:51 | PT-OP ANOTE ---
Pt called and VM left re: no show and reminded of no show policy. Reminded of next scheduled appt on 09/02
--- NOTE | 2023-09-03 15:39 | PT-OP ANOTE ---
Voicemail left for pt re: missed appointment today and reminder of No Show policy as explained in voicemails left for pt after last two missed PT appointments. Explained as this is third consecutively missed PT appointment remaining appointments will be cancelled and pt discharged and pt may be able to re-establish if needed with new referral, and may call [facility] PT [phone] with any questions. Credit Administration Manager notified to discharge accordingly.
--- NOTE | 2023-09-03 15:50 | PT-OP ANOTE ---
Per pt EMR records under Patient Messages pt was admitted to [facility] 08/31/23 and unable to attend appointments, was possibly discharged 09/01/23. Per discussion wth evaluating PT Ankita Ok Book Trimmer requested to hold off on discharge and future PT appointment cancellation. Spoke with pt advising missed appt today and their recent hospital stay for [facility]al [facility]. Advised next appointment was 09/08 at 9:45am w/ GONZALEZ Horton but this is cancelled and instead pt's next appointment is with evaluating PT Ankita on 09/14/23 at 8:15am as previously scheduled. Pt apologizes for missed appt and advises is at work, and confirms next appointment w/ PT 09/13 at 8:15a. She is advised she can text back to appointment reminders if needing to cancel prior to 24 hrs or needing to communicate and states she was unaware of this option.
--- NOTE | 2023-09-09 10:20 | PT-OP ANOTE ---
Pt no show, BUSINESS LEADER called pt, no answer.
--- NOTE | 2023-09-09 10:24 | PT-OP ANOTE ---
Per last admin note, pt apt on 09/09/2023 was to be cancelled with RIPENING ROOM HAND. Next apt is scheduled with PT Ankita.
--- NOTE | 2023-09-14 09:00 | PT.OPDS ---
Current Diagnoses Pain in right shoulder (08/18/23) Abnormal posture (08/18/23) Weakness (08/18/23) Visit Care Team Role Provider Type Genesis Holley DO Family Provider Non-Staff Specialty: [facility] Practice Address: Email: Marina Worthy DO Attending Provider Physician Primary Care Provider Referring Provider Specialty: [facility] Address: [address] [place] [address], [address], [place], [facility] Email: [email or web address] Visit Number Visit Number 4 Discharge Summary PT-OP-B Current Condition Start: 08/03/23 15:38 Freq: Status: Active Protocol: Document 08/05/23 13:50 [facility] (Rec: 08/05/23 14:34 [facility] [id number]) Current Condition History of Current Condition Current Complaints R shoulder History of Current Condition Pt had labral repair surgery in June 2 years ago. She slept on it funny a few weeks ago and it pops and feels unstable . She fell on her R side, hitting back and R shoulder about 1.5 month ago. this was the start when it acting up. She tripped while running. The shoulder was holding up okay up unitl then where it was stiff. She does still get sharp pains down to elbow and now to hand. Starts R neck, R inf shoulder blade then down to post arm, lat arm to hand all shooting pain, but fingers do feel tingly. Pt reports neck feels stiff. Pt works at [employer] now and can lift things, but shoulder feels unstable and gets sore after. Pt is worried about it dislocating. Has to avoid lifting really heavy things like 80lb bags of concrete. Treatment Goals Patient/Caregiver Goals Shoulder to not feel unstable. PT-OP-C Subjective Start: 08/03/23 15:38 Freq: Status: Active Protocol: Document 08/18/23 14:13 [facility] (Rec: 08/18/23 15:15 [facility] [id number]) OP-PT Subjective Patient Comments Patient Comments pt reprots scap region is hurting today. Wants to pop it but can't. She has been sleeping in her car the past 3 days and wonders if this is why. PT-OP-F Manual Assessment Start: 08/03/23 15:38 Freq: Status: Active Protocol: Document 08/05/23 13:50 [facility] (Rec: 08/05/23 14:34 [facility] [id number]) Manual Assessments Joint Mobility Assessment Joint Mobility Assessment humerus very ant in glenoid PT-OP-J Posture/Palpation/Skin Start: 08/03/23 15:38 Freq: Status: Active Protocol: Document 08/05/23 13:50 [facility] (Rec: 08/05/23 14:34 [facility] [id number]) Posture Evaluation [facility] Postural Classification System Alber Postural Classifications Posterior/Anterior Elbow Flexion Test 0 Comments Posture Comments R>L scap abd, ant tip, R shoulder higher, inc kyphosis and fwd head PT-OP-K Range of Motion Start: 08/03/23 15:38 Freq: Status: Active Protocol: Document 08/05/23 13:50 [facility] (Rec: 08/05/23 14:34 [facility] [id number]) Cervical Spine Range of Motion Cervical Spine Active Degrees Flexion 70 Extension 51 Rotation Left 66 Rotation Right 80 Lateral Flexion Left 42 Lateral Flexion Right 51 Comments tspine rot B: 100% but pain back Shoulder Goniometric Range of Motion Shoulder Right Active Flexion 157 Extension 69 Abduction 180 External Rotation at 0 degrees Abduction 40 Internal Rotation Behind Back (text) T6 Comments pain w/IR, abd (fingers tingle also), flex Left Active Flexion 171 Abduction 180 External Rotation at 0 degrees Abduction 53 Internal Rotation Behind Back (text) T2 PT-OP-L Special Tests Start: 08/03/23 15:38 Freq: Status: Active Protocol: Document 08/05/23 13:50 [facility] (Rec: 08/05/23 14:34 [facility] [id number]) Special Tests Cervical Spine Special Tests Spurling's Test Test Results neg for compression and traction Shoulder Special Tests Sulcus Test Results neg Comments some laxity but equal to other side Speed's Biceps Test Results neg [place] Test Test Results positive-more pain than speeds Neer Impingement Test Results neg Manuel Fabrice Impingement Test Results neg Empty Can Test Results positive for pain AC Joint Compression Test Results neg Neural Special Tests- Upper Body Median Nerve Tension Test Results pos R Radial Nerve Tension Test Results pos R Ulnar Nerve Tension Test Results pos R PT-OP-M Strength Start: 08/03/23 15:38 Freq: Status: Active Protocol: Document 08/05/23 13:50 [facility] (Rec: 08/05/23 14:34 [facility] [id number]) Shoulder Strength Shoulder Manual Muscle Testing Right Flexion 4- Good- Extension 4- Good- Abduction (C5) 4- Good- External Rotation 3+ Fair+ Internal Rotation 4- Good- Left Flexion 5 Normal Extension 5 Normal Abduction (C5) 5 Normal External Rotation 5 Normal Internal Rotation 5 Normal Elbow/Forearm Strength Elbow and Forearm Manual Muscle Testing Right Flexion (C6) 5 Normal Extension (C7) 5 Normal Pronation 5 Normal Supination 5 Normal Left Flexion (C6) 5 Normal Extension (C7) 5 Normal Pronation 5 Normal Supination 5 Normal PT-OP-T Assessment and Plan Start: 08/03/23 15:38 Freq: Status: Active Protocol: Document 09/14/23 08:54 [facility] (Rec: 09/14/23 08:56 [facility] [id number]) Physical Therapy Assessment Goals pain Short Term Goal (STG) Pt will be able to don/doff sweatshirts and other tighter shifts w/o inc pain STG Duration 09/20 Audit Spec Goal (LTG) Pt will report being able to do work activities w/o shoulder feeling unstable or painful greater than 2/10 LTG Duration 10/27 strength Short Term Goal (STG) Pt will be indep w/HEP STG Duration 09/20 Audit Spec Goal (LTG) pt will score at least 4+/5 on all R UE MMT and 4/5 on EFT to show improved stability to allow her to do lifting/ carrying neede for work LTG Duration 10/27 quick dash Impairment 56.8 Short Term Goal (STG) Pt will improve quick dash score to no higher than 40 to show improved functional ability. STG Duration 09/20 Longterm Goal (LTG) Pt will improve quick dash score to no higher than 10 to show improved functional ability. LTG Duration 10/27 Assessment Summary Assessment Pt was making progress w/PT w/ good improvement in tolerance to strength, improved posture and improved ROM w/less pain, but did no show then have appts cancelled when hospitalized. Pt no showed again today despite reminded via phone when no showed 09/02 appt. D/t pt not attending appts, DC at this time. If pt needs further PT, please send new referral. Pt called re: no show 09/13 but phone not receiving calls. Unable to text as pt is not receiving reminder texts either. DC d/t non compliance and pt unable to be gotten ahold of. Physical Therapy Plan Discharge Physical Therapy Discharge Reasons No Longer Attending PT
== END 2023-09-17 09:04 | disposition home or self-care (01) ==
LOC: PHYS 13:45
PROVIDERS: Family Provider Family Medicine; PCP Family Medicine; Referring Provider Family Medicine; Visit Provider Family Medicine
DX: M25.511 Pain in right shoulder (principal); R53.1 Weakness; R29.3 Abnormal posture
CPT/HCPCS: 97110; 97140; 97162

== ENCOUNTER → 2023-09-10 10:28 | Outpatient (CLI) | payer OTHER, MEDICAID, SELFPAY ==
--- NOTE | 2023-09-10 10:30 | DI.RAD.S_ITS ---
PROCEDURE: XR LUMBAR SPINE 2-3V INDICATIONS: back pain TECHNIQUE: 3 views of the lumbar spine were acquired. COMPARISON: None. FINDINGS: Bones: 5 [id number] vertebrae are present. There is normal bony alignment. No vertebral body compression fractures. No suspicious bony lesions. Soft tissues: Overlying bowel gas pattern is normal. No suspicious soft tissue calcifications. IMPRESSION: No acute bony abnormality. Dictated by: Liam Perez M.D. on 09/10/2023 at 10:02 Approved by: Liam Perez M.D. on 09/10/2023 at 10:02
== END ==
LOC: RAD 10:29
PROVIDERS: PCP Family Medicine; Referring Provider Family Medicine; Visit Provider Family Medicine
DX: M54.50 Low back pain, unspecified (principal)
CPT/HCPCS: 72100

== ENCOUNTER → 2024-01-05 10:48 | Outpatient (CLI) | payer OTHER, MEDICAID, SELFPAY ==
[2024-01-05 11:49] LABS: Hemoglobin A1C% w Est Avg Glu 5.1 % (4.0-6.0)
[2024-01-05 11:54] LABS: Cholesterol 157 mg/dL (140-199); HDL Cholesterol 69 mg/dL (40-60); LDL Cholesterol Calculated 78 mg/dL (<100); Triglycerides 51 mg/dL (35-150)
[2024-01-05 19:25] LABS: HIV 1 & 2 Ab/Ag 4th Gen Combo NEGATIVE (NEGATIVE)
[2024-01-06 05:37] LABS: RPR Screen Non Reactive (Non Reactive)
== END ==
LOC: LAB 10:49
PROVIDERS: PCP Family Medicine; Referring Provider Student in an Organized Health Care Education/Training Program; Visit Provider Student in an Organized Health Care Education/Training Program
DX: Z51.81 Encounter for therapeutic drug level monitoring (principal); R10.2 Pelvic and perineal pain; Z87.42 Personal history of other diseases of the female genital tract; N93.9 Abnormal uterine and vaginal bleeding, unspecified; Z11.3 Encounter for screening for infections with a predominantly sexual mode of transmission; F43.10 Post-traumatic stress disorder, unspecified; F31.31 Bipolar disorder, current episode depressed, mild; F90.9 Attention-deficit hyperactivity disorder, unspecified type
CPT/HCPCS: 36415; 80061; 83036; 86592; 87389; 99214

== ENCOUNTER 2024-01-06 19:42 | Emergency (ER) | payer OTHER, MEDICAID, SELFPAY ==
[2024-01-06 19:50] VITALS: BP 138/87; PULSE 88; RESP 18; TEMP 36.6; O2SAT 99; BMI 25.0
[2024-01-06 21:38] VITALS: PULSE 76; RESP 17; O2SAT 100
[2024-01-06 22:00] VITALS: PULSE 80; RESP 18; O2SAT 100
--- NOTE | 2024-01-06 22:11 | ED.CHESTPAIN ---
HPI - Chest Pain General Chief Complaint: Chest Pain Stated Complaint: chest px Time Seen by Provider: 01/06/24 21:36 History of Present Illness HPI narrative: 18-year-old female presents for 4 days of chest pain and lower rib pain. Moving makes the pain worse. No medications taken for symptoms prior to arrival. Patient has PCP appointment tomorrow for follow up after being told there was a murmur. Denies other complaints or symptoms. Related Data Previous Rx's Medication Instructions Recorded quetiapine 100 mg tablet 150 mg (1.5 x 100 mg) PO BEDTIME 11/24/23 #45 tabs hydroxyzine HCl 50 mg tablet 50 mg PO QID PRN anxiety #360 tabs 12/29/23 Allergies Allergy/AdvReac Type Severity Reaction Status Date / Time bacitracin Allergy Mild Blister Verified 01/07/24 08:34 [From Neosporin ([id number])] neomycin Allergy Mild Blister Verified 01/07/24 08:34 [From Neosporin ([id number])] polymyxin B Allergy Mild Blister Verified 01/07/24 08:34 [From Neosporin ([id number])] Patient History Medical History Bipolar disorder, unspecified Unspecified mood [affective] disorder PTSD (post-traumatic stress disorder) History of bipolar disorder Headache Shoulder pain Moderate mood disorder Insomnia Complex posttraumatic stress disorder Anxiety Depression ADHD Surgical History Anesthesia Status post labral repair of shoulder History of tonsillectomy Family History Father Diabetes mellitus Mental health problem Grandfather Mental health problem Grandmother Mental health problem Social History Smoking Status: Current some day smoker Smoking Status: Current some day smoker tobacco type: vaping alcohol intake frequency: holidays/special occasions only Substance Use Type: marijuana Exam Initial Vital Signs Initial Vital Signs: Vital Signs Temperature 98 F 01/06/24 19:50 Pulse Rate 88 01/06/24 19:50 Respiratory Rate 18 01/06/24 19:50 Blood Pressure 138/87 01/06/24 19:50 Pulse Oximetry 99 11/14/24 19:50 Oxygen Delivery Method Room Air 01/06/24 19:50 Const: Awake, alert, no acute distress, nontoxic appearing Cardiac: regular rate, regular rhythm, no obvious murmurs on auscultation RESP: unlabored, clear bilaterally, no wheezing Chest: generalized tenderness to palpation along anterior chest wall Skin: Warm, Dry, intact, no rashes Neuro: AO x3, CN II-XII grossly intact, moves all extremities Course Orders Ordered: ED Orders 01/06/24 22:10 EKG-12 Lead Stat Vital Signs Vital signs: Vital Signs - 8 hr 01/06/24 19:50 Temperature 98 F Pulse Rate 88 Respiratory Rate 18 Blood Pressure 138/87 Pulse Oximetry 99 Oxygen Delivery Method Room Air MDM - Chest Pain ECG Data Attestation: I personally reviewed and interpreted this ECG as follows: Interpretation: Normal sinus rhythm at 66 beats per minute. Normal [place], no ST T wave changes, no STEMI MDM Narrative Medical decision making narrative: 4 days of generalized anterior chest wall pain that is reproducible to palpation. Patient was young with no known risk factors. Heart score 0. EKG normal sinus rhythm. Patient counseled to take Tylenol and ibuprofen as needed for symptoms. She has scheduled PCP follow up already tomorrow. Discharge Plan Departure Patient Disposition: Home Clinical Impression: Chest wall pain Instructions: DI for Costochondritis Activity Restrictions/Additional Instructions: Your EKG today looks wonderful. You can take tylenol and ibuprofen as needed for chest wall pain. You can also do gentle stretching exercises to help relive the pain. Follow up tomorrow wiht your primary care doctor as scheduled Prescriptions: No Action quetiapine 100 mg tablet 150 mg PO BEDTIME Qty: 45 2RF hydroxyzine HCl 50 mg tablet 50 mg PO QID PRN (Reason: anxiety) Qty: 360 0RF Referrals: Marina Worthy DO [Primary Care Provider] - Stand Alone Forms: Patient Portal/API/Survey, Work Release Note
--- NOTE | 2024-01-06 22:16 | EKG_ITS ---
[address] [address] Test Date: 2024-01-06 Pat Name: Josie Carlos Department: [facility] Room: Gender: Female [employer] Cook: GADIEL VILLANUEVA : 2005 Requested By: Order Number: [id number] Reading MD: Loi Madrid MD Measurements Intervals [place] Rate: 66 P: 40 MS: 138 QRS: 80 QRSD: 82 T: 42 QT: 414 QTc: 434 Interpretive Statements Normal sinus rhythm Electronically Signed On 01-07-2024 11:40:39 PST by Loi Madrid MD
[2024-01-06 22:27] VITALS: BP 118/81; PULSE 80; RESP 14; O2SAT 100
== END 2024-01-06 22:28 | disposition home or self-care (01) ==
PROVIDERS: Emergency Provider Emergency Medicine; PCP Family Medicine
DX: R07.89 Other chest pain (principal); R07.81 Pleurodynia
CPT/HCPCS: 93005; 99281; 99283

== ENCOUNTER → 2024-03-31 09:59 | Outpatient (CLI) | payer OTHER, SELFPAY ==
--- NOTE | 2024-03-31 10:00 | DI.RAD.S_ITS ---
PROCEDURE: XR FINGER RT MIN 2V INDICATIONS: reporting persistent discomfort/issues with ROM after injury TECHNIQUE: AP hand, 3 views of the 5th finger(s) acquired. COMPARISON: None. FINDINGS: Bones: No fractures or dislocations. No suspicious bony lesions. The joint spaces are well preserved. Soft tissues: No suspicious soft tissue calcifications. IMPRESSION: No evidence of acute osseous abnormality. Dictated by: Sami Reis M.D. on 04/01/2024 at 11:31 Approved by: Sami Reis M.D. on 04/01/2024 at 11:34
== END ==
PROVIDERS: PCP Family Medicine; Referring Provider Family Medicine; Visit Provider Family Medicine
DX: S61.216A Laceration without foreign body of right little finger without damage to nail, initial encounter (principal); X58.XXXA Exposure to other specified factors, initial encounter
CPT/HCPCS: 73140

== ENCOUNTER → 2024-06-25 11:31 | Outpatient (CLI) | payer OTHER, SELFPAY ==
[2024-06-25 12:27] LABS: Influenza A - CEPHEID Flu A NEGATIVE (NEGATIVE); Influenza B - CEPHEID Flu B NEGATIVE (NEGATIVE); Respiratory Syncytial Virus Negative (Negative)
[2024-06-25 12:40] LABS: COVID-19 CEPHEID 4-PLEX PCR Negative (Negative)
== END ==
PROVIDERS: PCP Family Medicine; Visit Provider Chiropractor
DX: R05.9 Cough, unspecified (principal); J02.9 Acute pharyngitis, unspecified
CPT/HCPCS: 87635; 87400; 87420; 0241U; 87070

== ENCOUNTER 2024-07-18 21:22 | Emergency (ER) | payer OTHER, SELFPAY ==
[2024-07-18 21:45] VITALS: BP 139/62; PULSE 90; RESP 16; TEMP 36.9; O2SAT 97; BMI 25.0
[2024-07-18 22:09] LABS: RBC Urine 0-1/HPF (0-5/HPF); Urine Volume 10mL (spun)
[2024-07-18 22:10] LABS: Amorphous Sediment Urine 3+; Bacteria Urine None Seen; Culture Indicated Urine Cult Not Indicated; Squamous Epithelial Cell Urine 0-1 /HPF (0-5/HPF); WBC Urine None Seen (0-5/HPF)
--- NOTE | 2024-07-19 00:20 | ED.BACK ---
HPI - Back Pain/Injury General Chief Complaint: Back Pain/Injury Stated Complaint: RT SIDE LOWER BACK PAIN, CANT STAND UP STRAIGHT Time Seen by Provider: 07/19/24 00:20 Source: patient History of Present Illness HPI Narrative: 19-year-old female past medical history of PTSD, bipolar, anxiety, comes into the ED from home for evaluation of right-sided low back pain states it started yesterday, nontraumatic, states it feels like it goes to her right knee cap, states that the pain woke her up, states that she has also been constipated, also complaining of some cloudy urine, tried ibuprofen at 5:30 p.m. without any relief therefore decided come into the ED for further evaluation treatment. Patient was able to stand bear weight ambulate unassisted here in the emergency department. Denies any saddle paresthesias, bowel or urinary incontinence or retention. She denies any other symptoms at this time Related Data Previous Rx's Medication Instructions Recorded prazosin 1 mg capsule 1 mg PO BEDTIME nightmares #30 caps 03/10/24 aripiprazole 5 mg tablet See Rx Instructions .Route 03/14/24 .COMPLEX #30 tabs trazodone 150 mg tablet 150 mg PO BEDTIME PRN insomnia #30 04/11/24 tabs methylphenidate HCl 18 mg 18 mg PO QAM #30 tabs 05/10/24 tablet,extended release 24 hr nicotine (polacrilex) 2 mg buccal 2 mg buccal Q2-4H PRN nicotine 05/10/24 mini lozenge cravings #81 ea nicotine 14 mg/24 hr daily 1 patch transdermal DAILY #28 ea 05/10/24 transdermal patch cyclobenzaprine 10 mg tablet 10 mg PO BEDTIME PRN muscle spasm 07/19/24 1 week #7 tabs naproxen 500 mg tablet (Naprosyn) 500 mg PO BID PRN pain 1 week #14 07/19/24 tabs prednisone 20 mg tablet 20 mg PO DAILY 5 days #5 tabs 07/19/24 Allergies Allergy/AdvReac Type Severity Reaction Status Date / Time bacitracin Allergy Mild Blister Verified 06/25/24 11:22 [From Neosporin ([id number])] neomycin Allergy Mild Blister Verified 06/25/24 11:22 [From Neosporin ([id number])] polymyxin B Allergy Mild Blister Verified 06/25/24 11:22 [From Neosporin ([id number])] Review of Systems Review of Systems Narrative: General: Denies fever, chills, weight loss HEENT: Denies headache, eye drainage, eye irritation, head trauma, sore throat, voice change Cardiovascular: Denies any chest pain, palpitations, tachycardia Respiratory: Denies any shortness of breath, cough, wheeze, stridor GI/: Denies any abdominal pain, nausea, vomiting, diarrhea, bright red blood per rectum, melanotic stools, urinary frequency, urinary retention, dysuria, hematuria MSK: Positive low back pain Skin: Denies any rashes, lesions, discoloration Neuro: Denies any headache, lightheadedness, dizziness, fainting, weakness Psych: Denies SI/HI Patient History Medical History (Updated 07/19/24 @ 00:57 by Lazaro Reyes DO) Nicotine dependence due to vaping non-tobacco product ADHD (attention deficit hyperactivity disorder), combined type Bipolar disorder, unspecified Unspecified mood [affective] disorder PTSD (post-traumatic stress disorder) History of bipolar disorder Headache Shoulder pain Moderate mood disorder Insomnia Complex posttraumatic stress disorder Anxiety Depression ADHD Surgical History Anesthesia Status post labral repair of shoulder History of tonsillectomy Family History Father Diabetes mellitus Mental health problem Grandfather Mental health problem Grandmother Mental health problem Smoking Status: Current every day smoker tobacco type: vaping alcohol intake frequency: holidays/special occasions only Exam Narrative Exam Narrative: General: Cooperative, well-developed, not in acute distress HEENT: Normocephalic, atraumatic, PERRLA, normal sclera, eyelids normal Neck: Active full range of motion, atraumatic Chest: Normal to inspection, negative crepitus, no overlying erythema ecchymosis Respiratory: Normal respiratory effort, not in acute respiratory distress, clear to auscultation bilaterally negative cough, wheeze, tachypnea, rhonchi, rales Cardiology: Regular rate rhythm negative gallop, murmur, rubs GI/: No tenderness to palpation, soft, non rigid, normal to inspection, exam deferred MSK: Full active range of motion in all 4 extremities, atraumatic, no tenderness to palpation of any bony prominences, there is no tenderness to palpation of the midline thoracic or cervical or lumbar spine, tenderness to palpation of the paraspinal muscles of the lumbar region right side worse than left Skin: No rashes or lesions noted Neuro: Alert awake oriented x3, moves all 4 extremities spontaneously, cranial nerves intact, able to answer all questions appropriately follows commands appropriately Psych: Cooperative, negative suicidal or homicidal ideations Initial Vital Signs Initial Vital Signs: Vital Signs Temperature 98.5 F 07/18/24 21:45 Pulse Rate 90 07/18/24 21:45 Respiratory Rate 16 07/18/24 21:45 Blood Pressure 139/62 07/18/24 21:45 Pulse Oximetry 97 07/18/24 21:45 Oxygen Delivery Method Room Air 07/18/24 21:45 Course Orders Ordered: ED Orders 07/18/24 21:50 Urine Microscopic Stat Vital Signs Vital signs: Vital Signs - 8 hr 07/18/24 21:45 Temperature 98.5 F Pulse Rate 90 Respiratory Rate 16 Blood Pressure 139/62 Pulse Oximetry 97 Oxygen Delivery Method Room Air MDM - Back Pain/Injury Differential Diagnosis Differential diagnosis: Likely lumbar radiculopathy, sciatica, strain of lumbar region and other (UTI) Lab Data Labs: Lab Results 07/18/24 Range/Units 21:50 Urine RBC 0-1/hpf (0-5/HPF) Urine WBC None seen (0-5/HPF) Ur Squamous Epith Cells 0-1 /hpf (0-5/HPF) Amorphous Sediment 3+ Urine Bacteria None seen (None) Ur Culture Indicated? Cult not indicated Vol Urine Centrifuged 10ml (spun) Point of Care Testing Test Results Negative Urine Dip Bedside Urine Glucose Negative Bedside Urine Bilirubin - Negative Bedside Urine Ketone - Negative Urine Specific [place] 1.015 Bedside Urine Occult Blood +/- Bedside Urine pH 6.5 Bedside Urine Protein - Negative Bedside Urine Urobilinogen - Negative Bedside Urine Nitrite - Negative Bedside Urine Leukocytes - Negative Esterase MDM Narrative Medical decision making narrative: 19-year-old female with past medical history of bipolar, PTSD, presents to the emergency department for low back pain, states it started yesterday nontraumatic in nature states that it is worse to the right side states it feels like go [employer], she denies any bowel or urinary incontinence retention, no saddle paresthesias, denies any other injuries or symptoms at this time. Patient is able to stand bear weight ambulate unassisted here in the emergency department, symptoms and physical exam were likely secondary to L4-L5 lumbar radiculopathy, she has no red flags for cauda equina, she will be given 1st dose of symptomatic relief here discharged home with them and instructed follow up with PCP in outpatient setting, strict return precautions given she verbalized understanding of this and agrees to being discharged home with outpatient follow up Discharge Plan Departure Patient Disposition: Home Clinical Impression: Acute lumbar radiculopathy Instructions: DI for Low Back Pain Activity Restrictions/Additional Instructions: Please follow up with your primary care doctor Please read the discharge instructions sheet carefully and bring all papers to all doctor follow-up visits, as it may contain information that your doctor may want to see. Disease processes change and evolve, if your symptoms worsen or if you develop any new symptoms that are concerning to you please return for evaluation. Your evaluation today does not show any evidence of any life-threatening/serious illnesses requiring admission to the hospital or surgery. Please follow-up with your doctor for re-evaluation in approximately 1 day. Seek immediate medical attention for any worrisome symptoms. *If you do not have a primary care provider please contact the [facility] Resource line at [phone]. They will ask some questions about your medical history and help get you set up with a doctor in the community. Prescriptions: New cyclobenzaprine 10 mg tablet 10 mg PO BEDTIME PRN (Reason: muscle spasm) 7 Days Qty: 7 0RF naproxen [Naprosyn] 500 mg tablet 500 mg PO BID PRN (Reason: pain) 7 Days Qty: 14 0RF prednisone 20 mg tablet 20 mg PO DAILY 5 Days Qty: 5 0RF No Action trazodone 150 mg tablet 150 mg PO BEDTIME PRN (Reason: insomnia) Qty: 30 2RF Rx Instructions: Start with 50mg and increase as needed up to 150mg methylphenidate HCl 18 mg tablet extended release 24hr 18 mg PO QAM Qty: 30 0RF nicotine 14 mg/24 hr patch 24 hour 1 patch transdermal DAILY Qty: 28 2RF Rx Instructions: Remove an hour before bedtime to prevent worsening nightmares nicotine (polacrilex) 2 mg mini lozenge 2 mg buccal Q2-4H PRN (Reason: nicotine cravings) Qty: 81 2RF aripiprazole 5 mg tablet See Rx Instructions .ROUTE .COMPLEX Qty: 30 3RF Rx Instructions: Start with half a tablet (2.5mg) by mouth daily for one week (starting the week you decrease quetiapine to 25mg), then increase to full tablet (5mg) by mouth daily thereafter prazosin 1 mg capsule 1 mg PO BEDTIME Qty: 30 3RF Referrals: Marina Worthy DO [Primary Care Provider] - Stand Alone Forms: Patient Portal/API/Survey
[2024-07-19] MEDS: KETOROLAC 30 MG/ML VIAL 15 MG IM (01:27)
[2024-07-19] MEDS: OXYCODONE/APAP 5/325 PREPACK 1 BOTTLE MISC (01:27)
[2024-07-19] MEDS: predniSONE 20 MG TABLET PO (01:28)
[2024-07-19 01:37] VITALS: BP 117/68; PULSE 80; RESP 16; O2SAT 100
== END 2024-07-19 01:39 | disposition home or self-care (01) ==
PROVIDERS: Emergency Provider Student in an Organized Health Care Education/Training Program; PCP Family Medicine
DX: M54.16 Radiculopathy, lumbar region (principal)
CPT/HCPCS: 81003; 81015; 81025; 96372; 99283; J1885

== ENCOUNTER → 2024-09-11 11:15 | Outpatient (CLI) | payer OTHER, SELFPAY ==
[2024-09-11 11:36] LABS: Add Manual Diff / Slide Review NO; Hematocrit 39.7 % (36-46); Hemoglobin 13.5 g/dL (12.0-16.0); Lymphocytes Absolute Auto 2000 /uL (1100-4500); Mean Corpuscular HGB Conc 34.1 % (30-36); Mean Corpuscular Hemoglobin 30.4 PG (26-34); Mean Corpuscular Volume 89.3 fL (80-100); Platelet Count 303 X10^3/uL (150-400)
[2024-09-11 11:53] LABS: Alanine Aminotransferase 14 IU/L (<35); Albumin 4.0 g/dL (3.5-5.0); Albumin Globulin Ratio 1.7 (1.0-2.8); Alkaline Phosphatase 63 U/L (38-126); Blood Urea Nitrogen 10 mg/dL (7-17); Calcium 8.9 mg/dL (8.4-10.2); Carbon Dioxide 25 mmol/L (22-32); Chloride 104 mmol/L (98-107); Cholesterol 144 mg/dL (140-199); Estimated Glomerular Filt Rate > 60 mL/min (>60); Globulin 2.4 g/dL (1.7-4.1); Glucose 89 mg/dL (70-99); HDL Cholesterol 57 mg/dL (40-60); HEMOLYSIS < 15 (0-50); Potassium 4.3 mmol/L (3.4-5.1); Sodium 135 mmol/L (137-145); Total Protein 6.4 g/dL (6.3-8.2); Triglycerides 67 mg/dL (35-150)
== END ==
PROVIDERS: PCP Family Medicine; Referring Provider Family Medicine; Visit Provider Family Medicine
DX: Z00.00 Encounter for general adult medical examination without abnormal findings (principal); E78.5 Hyperlipidemia, unspecified
CPT/HCPCS: 36415; 80053; 80061; 85025

== ENCOUNTER → 2024-09-22 15:25 | Outpatient (CLI) | payer OTHER, SELFPAY ==
[2024-09-22 16:19] LABS: Ur Creatinine Normal (Normal); Ur Specific Gravity Normal (Normal); Urine pH Normal (Normal)
[2024-09-22 16:20] LABS: Urine MDMA Negative (Negative); Urine Methamphetamines Negative (Negative); Urine THC Negative (Negative); Urine Tricyclic Antidepressant Negative (Negative)
== END ==
PROVIDERS: PCP Family Medicine; Referring Provider Student in an Organized Health Care Education/Training Program; Visit Provider Student in an Organized Health Care Education/Training Program
DX: Z51.81 Encounter for therapeutic drug level monitoring (principal); F90.2 Attention-deficit hyperactivity disorder, combined type; F43.10 Post-traumatic stress disorder, unspecified; F31.31 Bipolar disorder, current episode depressed, mild; F17.200 Nicotine dependence, unspecified, uncomplicated
CPT/HCPCS: 80305; 99214